=== PATIENT | female | born 2000 | race Caucasian/White ===

== ENCOUNTER 2020-08-12 23:29 | Emergency (ER) | payer OTHER ==
[~2020-08-12] VITALS: Ht 162.6 cm; Wt 50.8 kg
[~2020-08-12 23:29] MED LIST: AMOCLA875 PO; AZIT100SU PO; BENZ100A PO; CODACEE120 PO; CODGUAEL PO; Veetids 500500 MG PO
[2020-08-13] MEDS ORDERED: Amoxicillin500 MG PO (00:11)
== END 2020-08-13 00:18 | disposition home or self-care (01) ==
LOC: ER 23:29
DX: K04.7 Periapical abscess without sinus (principal)
CPT/HCPCS: 99282; A9270

== ENCOUNTER → 2021-02-01 | Outpatient (CLI) | payer OTHER ==
[~2021-02-01] MED LIST changes: +Amoxicillin500 MG PO
[2021-02-03 01:11] LABS: CHLAMYDIA TRACHOMATIS, NAA Negative (Negative)
== END ==
LOC: LAB 17:37 → LAB SHORT 17:37
PROVIDERS: Family Medicine
DX: O99.891 Other specified diseases and conditions complicating pregnancy (principal); R82.90 Unspecified abnormal findings in urine
CPT/HCPCS: 87086; 87491; 87591

== ENCOUNTER 2021-04-06 21:32 | Emergency (ER) | payer OTHER ==
[~2021-04-06] VITALS: Ht 157.5 cm; Wt 56.7 kg
[2021-04-06] MEDS ORDERED: AMOX500 PO (22:34)
== END 2021-04-06 22:44 | disposition home or self-care (01) ==
LOC: ER 21:32
DX: O99.830 Other infection carrier state complicating pregnancy (principal); K04.7 Periapical abscess without sinus; Z3A.17 17 weeks gestation of pregnancy; Z79.899 Other long term (current) drug therapy
CPT/HCPCS: 99282; A9270

== ENCOUNTER → 2021-08-16 | Outpatient (CLI) | payer OTHER ==
[~2021-08-16] MED LIST changes: +AMOX500 PO
== END | disposition home or self-care (01) ==
LOC: LAB SHORT 16:42 → LAB 16:42
DX: Z34.03 Encounter for supervision of normal first pregnancy, third trimester (principal); Z3A.36 36 weeks gestation of pregnancy
CPT/HCPCS: 87081; 87150

== ENCOUNTER 2021-09-03 14:10 | Inpatient (IN) | payer OTHER ==
[~2021-09-03] VITALS: Ht 165.1 cm; Wt 63.0 kg
[2021-09-03] MEDS ORDERED: PRENATAL TABLE1 EAC2 PO (14:45)
--- NOTE | 2021-09-03 15:53 | NUR ---
PT CONSENT TO CORE REFERRAL. CORE REFERRAL SENT
[2021-09-03 16:11] LABS: BASOPHILS ABSOLUTE AUTO 0.07 K/mm3 (0.00-0.23); BASOPHILS PERCENT AUTO 0 % (0-2); EOSINOPHILS PERCENT AUTO 0 % (0-6); Hemoglobin 14.5 g/dL (11.5-16.0); IMMATURE GRAN ABSOLUTE AUTO 0.21 K/mm3 (0.00-0.10); IMMATURE GRAN PERCENT AUTO 1 % (0-1); LYMPHOCYTES ABSOLUTE AUTO 1.27 K/mm3 (0.84-5.20); LYMPHOCYTES PERCENT AUTO 4 % (21-46); MONOCYTES ABSOLUTE AUTO 0.43 K/mm3 (0.16-1.47); MONOCYTES PERCENT AUTO 1 % (4-13); Mean Corpuscular HGB 29.8 pg (26.0-34.0); Mean Corpuscular HGB Conc 33.7 g/dL (31.5-36.5); Mean Corpuscular Volume 89 fL (80-100); Mean Platelet Volume 11.3 fL (9.1-12.4); NEUTROPHILS ABSOLUTE AUTO 28.32 K/mm3 (1.96-9.15); NEUTROPHILS PERCENT AUTO 94 % (41-73); Platelet Count 195 K/mm3 (150-400); RDW Coefficient Variation 17.6 % (11.7-14.2); RDW Standard Deviation 56.2 fL (35.1-46.3); Red Blood Cell Count 4.86 M/mm3 (3.80-5.20)
--- NOTE | 2021-09-03 16:19 | NUR ---
UP TO SHOWER. [facility] TEACHING DONE. PT WYATT BEING UP TO BRP AND SHOWER WELL. ABLE TO VOID
[2021-09-04 05:33] LABS: BASOPHILS ABSOLUTE AUTO 0.06 K/mm3 (0.00-0.23); BASOPHILS PERCENT AUTO 0 % (0-2); EOSINOPHILS ABSOLUTE AUTO 0.04 K/mm3 (0.00-0.68); EOSINOPHILS PERCENT AUTO 0 % (0-6); Hematocrit 39.4 % (33.0-51.0); Hemoglobin 13.2 g/dL (11.5-16.0); IMMATURE GRAN PERCENT AUTO 1 % (0-1); LYMPHOCYTES ABSOLUTE AUTO 3.89 K/mm3 (0.84-5.20); LYMPHOCYTES PERCENT AUTO 18 % (21-46); MONOCYTES ABSOLUTE AUTO 1.11 K/mm3 (0.16-1.47); MONOCYTES PERCENT AUTO 5 % (4-13); Mean Corpuscular HGB 29.6 pg (26.0-34.0); Mean Corpuscular HGB Conc 33.5 g/dL (31.5-36.5); Mean Corpuscular Volume 88 fL (80-100); Mean Platelet Volume 11.1 fL (9.1-12.4); NEUTROPHILS PERCENT AUTO 76 % (41-73); Platelet Count 184 K/mm3 (150-400); RDW Coefficient Variation 17.6 % (11.7-14.2); RDW Standard Deviation 56.4 fL (35.1-46.3); Red Blood Cell Count 4.46 M/mm3 (3.80-5.20)
--- NOTE | 2021-09-04 08:59 | NUR ---
MOTHER IS VERY AGITATED THIS MORNING. [facility] [employer] REPORTED TO NURSE THAT PT WANTED TO LEAVE AND NOT STAY FOR 24 HOUR TESTS OR CARSEAT CHALLENGE. RN IN ROOM WITH PT AND S.O. ROGER, AND PT'S MOTHER. PT WAS STRAIGHT FACED. RN EDUCATED ON IMPORTANCE AND REASONING OF 24 HOUR TESTS AND CARSEAT CHALLENGE. PT'S MOTHER BROUGHT IN CARSEAT, SO RN OFFERED TO TAKE NB FOR CHALLENGE SO PT COULD GO GET HOT BREAKFAST, TAKE A SHOWER, NAP, GET FRESH AIR TO CALM DOWN. AFTER VS AND ASSESSMENT PT APPEARED TO BE CALM AND EVEN SMILED. PT AND HER MOTHER THEN STARTED TO ARGUE. PT'S MOTHER WALKED OUT AND RN WAS BEHIND HER WITH NB FOR CARSEAT CHALLENGE. PT AND S.O. FOLLOWED BEHIND, WALKING OUT OF UNIT. WILL CONTINUE TO MONITOR. PT REFUSED MOTRIN AND STATED SHE JUST, "WANTS TO DO THE TESTS AND GO HOME, I CAN'T SLEEP HERE"
--- NOTE | 2021-09-04 11:10 | NUR ---
[place] DEPRESSION SCREEN OF 4. PT STATES SHE HAS HISTORY WITH ANXIETY AND WAS TAKING BUSPAR PRIOR TO . PT DOES NOT HAVE CURRENT PRESCRIPTION. RECOMMENDED PT TALK TO DR ABOUT REFILLING PRESCRIPTION.
--- NOTE | 2021-09-04 13:54 | NUR ---
DISCHARGE INSTRUCTIONS, WRITTEN AND VERBAL, GIVEN TO PT. ANSWERED ALL QUESTIONS AND CONCERNS. FOLLOW UP APPOINTMENT SCHEDULED. ALL PERSONAL BELONGINGS RETURNED. PT IS READY FOR DISCHARGE.
== END 2021-09-04 14:54 | disposition home or self-care (01) | DRG 806 ==
LOC: OBS 14:10 → BC 14:11 → OBS 14:18 → BC 14:18
PROVIDERS: ADMIT Family Medicine
PROC: 10E0XZZ Delivery of Products of Conception, External Approach (ICD-10-PCS; principal; 2021-09-03)
PROC: 0HQ9XZZ Repair Perineum Skin, External Approach (ICD-10-PCS; 2021-09-03)
DX: O62.3 Precipitate labor (principal); O99.324 Drug use complicating childbirth; Z37.0 Single live birth; O70.0 First degree perineal laceration during delivery; Z79.899 Other long term (current) drug therapy; Z3A.38 38 weeks gestation of pregnancy; O99.334 Smoking (tobacco) complicating childbirth; F17.210 Nicotine dependence, cigarettes, uncomplicated; F12.90 Cannabis use, unspecified, uncomplicated
CPT/HCPCS: 36415; 85025; 86850; 86900; 86901; 99214; A9270

== ENCOUNTER → 2021-11-22 | Outpatient (CLI) | payer OTHER ==
[~2021-11-22] MED LIST changes: +PRENATAL TABLE1 EAC2 PO
== END | disposition home or self-care (01) ==
LOC: LAB 17:57 → LAB SHORT 17:57
PROVIDERS: Family Medicine
DX: Z00.00 Encounter for general adult medical examination without abnormal findings (principal); Z12.4 Encounter for screening for malignant neoplasm of cervix
CPT/HCPCS: G0123

== ENCOUNTER → 2022-09-01 | Outpatient (CLI) | payer OTHER ==
[2022-09-03 01:09] LABS: CHLAMYDIA TRACHOMATIS, NAA Negative (Negative)
== END ==
LOC: LAB 12:03 → LAB SHORT 12:03
PROVIDERS: Family Medicine
DX: Z34.01 Encounter for supervision of normal first pregnancy, first trimester (principal); Z34.81 Encounter for supervision of other normal pregnancy, first trimester; Z3A.01 Less than 8 weeks gestation of pregnancy
CPT/HCPCS: 87086; 87491; 87591

== ENCOUNTER → 2023-03-17 | Outpatient (CLI) | payer OTHER ==
[2023-03-17 12:01] LABS: BASOPHILS ABSOLUTE AUTO 0.09 K/mm3 (0.00-0.23); BASOPHILS PERCENT AUTO 0 % (0-2); EOSINOPHILS ABSOLUTE AUTO 0.17 K/mm3 (0.00-0.68); EOSINOPHILS PERCENT AUTO 1 % (0-6); Hematocrit 38.5 % (33.0-51.0); Hemoglobin 12.9 g/dL (11.5-16.0); IMMATURE GRAN ABSOLUTE AUTO 0.13 K/mm3 (0.00-0.10); IMMATURE GRAN PERCENT AUTO 1 % (0-1); LYMPHOCYTES ABSOLUTE AUTO 3.69 K/mm3 (0.84-5.20); LYMPHOCYTES PERCENT AUTO 18 % (21-46); MONOCYTES PERCENT AUTO 5 % (4-13); Mean Corpuscular HGB 31.2 pg (26.0-34.0); Mean Corpuscular HGB Conc 33.5 g/dL (31.5-36.5); Mean Corpuscular Volume 93 fL (80-100); Mean Platelet Volume 11.9 fL (9.1-12.4); NEUTROPHILS ABSOLUTE AUTO 15.83 K/mm3 (1.96-9.15); NEUTROPHILS PERCENT AUTO 75 % (41-73); Platelet Count 216 K/mm3 (150-400); RDW Coefficient Variation 13.9 % (11.7-14.2); RDW Standard Deviation 47.1 fL (35.1-46.3); Red Blood Cell Count 4.14 M/mm3 (3.80-5.20); White Blood Cell Count 21.01 K/mm3 (4.00-11.30)
== END | disposition home or self-care (01) ==
LOC: LAB SHORT 10:56
PROVIDERS: Family Medicine
DX: Z34.83 Encounter for supervision of other normal pregnancy, third trimester (principal); Z3A.26 26 weeks gestation of pregnancy
CPT/HCPCS: 82950; 85025

== ENCOUNTER → 2023-03-29 | Outpatient (CLI) | payer OTHER | END | disposition home or self-care (01) | LOC: LAB 17:17 → LAB SHORT 17:17 | DX: Z34.83 Encounter for supervision of other normal pregnancy, third trimester (principal); Z3A.37 37 weeks gestation of pregnancy | CPT/HCPCS: 87081; 87150 ==

== ENCOUNTER 2023-04-14 17:25 | Inpatient (IN) | payer OTHER ==
[~2023-04-14] VITALS: Ht 162.6 cm; Wt 57.3 kg
[2023-04-14] VITALS (9 sets, daily range): BP systolic 101–125; BP diastolic 64–78
[2023-04-14] MEDS ORDERED: LR Oxytocin 20 Units 1,000 ML IV ONE (17:40)
[2023-04-14] MEDS ORDERED: Oxytocin 10 Unit / ML Vial IM SCH (17:45)
[2023-04-14] MEDS ORDERED: Castor Oil 59.146 ML BTL TOP SCH (17:45)
[2023-04-14] MEDS ORDERED: Methylergonovine Maleate 0.2MG / ML 1ML Amp IM SCH (17:45)
[2023-04-14] MEDS ORDERED: Lactated Ringer's 1,000 ML IV PRN (17:45)
[2023-04-14] MEDS ORDERED: Bupivacaine HCl 2.5 MG/ML 10ML P/F Injection XX SCH (17:45)
[2023-04-14] MEDS ORDERED: LR Oxytocin 20 Units 1,000 ML IV SCH (17:45)
[2023-04-14] MEDS ORDERED: Bupivacaine 0.5% HCl 5 MG/ML 30MLVIAL XX SCH (17:45)
[2023-04-14] MEDS ORDERED: Misoprostol 200 MCG Tab PR SCH (17:45)
[2023-04-14] MEDS ORDERED: Lidocaine HCl 1% 30 ML SDV XX SCH (17:45)
[2023-04-14 17:51] LABS: BASOPHILS ABSOLUTE AUTO 0.06 K/mm3 (0.00-0.23); BASOPHILS PERCENT AUTO 0 % (0-2); EOSINOPHILS ABSOLUTE AUTO 0.05 K/mm3 (0.00-0.68); EOSINOPHILS PERCENT AUTO 0 % (0-6); Hematocrit 42.5 % (33.0-51.0); Hemoglobin 14.7 g/dL (11.5-16.0); IMMATURE GRAN PERCENT AUTO 1 % (0-1); LYMPHOCYTES ABSOLUTE AUTO 3.57 K/mm3 (0.84-5.20); LYMPHOCYTES PERCENT AUTO 17 % (21-46); MONOCYTES ABSOLUTE AUTO 1.06 K/mm3 (0.16-1.47); MONOCYTES PERCENT AUTO 5 % (4-13); Mean Corpuscular HGB 31.3 pg (26.0-34.0); Mean Corpuscular HGB Conc 34.6 g/dL (31.5-36.5); Mean Corpuscular Volume 91 fL (80-100); Mean Platelet Volume 10.9 fL (9.1-12.4); NEUTROPHILS ABSOLUTE AUTO 16.26 K/mm3 (1.96-9.15); NEUTROPHILS PERCENT AUTO 77 % (41-73); Platelet Count 188 K/mm3 (150-400); RDW Coefficient Variation 14.3 % (11.7-14.2); RDW Standard Deviation 47.1 fL (35.1-46.3); Red Blood Cell Count 4.69 M/mm3 (3.80-5.20)
[2023-04-14] MEDS ORDERED: Lactated Ringer's 1,000 ML IV SCH (18:30)
[2023-04-14] MEDS ORDERED: Methylergonovine Maleate 0.2MG / ML 1ML Amp IM PRN (18:30)
[2023-04-14] MEDS ORDERED: Misoprostol 200 MCG Tab PO PRN (18:30)
[2023-04-14] MEDS ORDERED: Acetaminophen 325 MG TABLET PO PRN (18:35)
[2023-04-14] MEDS ORDERED: Carboprost Tromethamine 250 MCG/ML 1ML Amp IM PRN (18:35)
[2023-04-14] MEDS ORDERED: Docusate Sodium 100 MG Cap PO PRN (18:35)
[2023-04-14] MEDS ORDERED: Misoprostol 200 MCG Tab PR PRN (18:35)
[2023-04-14] MEDS ORDERED: Benzocaine Topical Anesthetic Spray 60GM TOP PRN (18:35)
[2023-04-14] MEDS ORDERED: FLU VACC QS2023-24(6MOS UP)/PF 60 MCG/0.5 ML SYRINGE IM ONE (18:35)
[2023-04-14] MEDS ORDERED: Ibuprofen 400 MG Tab PO PRN (18:40)
[2023-04-14] MEDS ORDERED: Witch Hazel/Glycerin PADS TOP PRN (18:40)
[2023-04-14] MEDS ORDERED: Ketorolac Tromethamine 30mg Vial IV SCH (19:00)
[2023-04-15 00:57] VITALS: BP 116/67
[2023-04-15 04:47] VITALS: BP 125/76
[2023-04-15 05:25] LABS: BASOPHILS ABSOLUTE AUTO 0.07 K/mm3 (0.00-0.23); BASOPHILS PERCENT AUTO 0 % (0-2); EOSINOPHILS ABSOLUTE AUTO 0.03 K/mm3 (0.00-0.68); EOSINOPHILS PERCENT AUTO 0 % (0-6); Hemoglobin 13.6 g/dL (11.5-16.0); IMMATURE GRAN ABSOLUTE AUTO 0.11 K/mm3 (0.00-0.10); IMMATURE GRAN PERCENT AUTO 1 % (0-1); LYMPHOCYTES ABSOLUTE AUTO 3.93 K/mm3 (0.84-5.20); LYMPHOCYTES PERCENT AUTO 20 % (21-46); MONOCYTES ABSOLUTE AUTO 1.23 K/mm3 (0.16-1.47); MONOCYTES PERCENT AUTO 6 % (4-13); Mean Corpuscular HGB 31.2 pg (26.0-34.0); Mean Corpuscular Volume 92 fL (80-100); Mean Platelet Volume 10.8 fL (9.1-12.4); NEUTROPHILS ABSOLUTE AUTO 14.77 K/mm3 (1.96-9.15); NEUTROPHILS PERCENT AUTO 74 % (41-73); Platelet Count 164 K/mm3 (150-400); RDW Coefficient Variation 14.2 % (11.7-14.2); RDW Standard Deviation 47.6 fL (35.1-46.3); Red Blood Cell Count 4.36 M/mm3 (3.80-5.20); White Blood Cell Count 20.14 K/mm3 (4.00-11.30)
[2023-04-15 08:09] VITALS: BP 110/74
[2023-04-15] MEDS ORDERED: Prenatal Vit/FE Fumarate/FA 1 Tab PO SCH (09:00)
[2023-04-15] MEDS ORDERED: IBUP800 PO (10:23)
--- NOTE | 2023-04-15 10:59 | NUR ---
04/15/23 1045 pt scored 11 on EPDS, Zaheer from [facility] was called and to come see here JULIO CESAR. Pt states that she does not take her depression meds for the past 7 days adn will begin again after she gets home. States that Dr Choudhary is aware of this and that they have a follow up plan at discharge.
== END 2023-04-15 12:43 | disposition home or self-care (01) | DRG 807 ==
LOC: OBS 17:25 → BC 17:26 → OBS 17:38 → BC 17:39
PROVIDERS: Registered Nurse Community Health; ADMIT Family Medicine
PROC: 10E0XZZ Delivery of Products of Conception, External Approach (ICD-10-PCS; principal; 2023-04-14)
DX: O99.334 Smoking (tobacco) complicating childbirth (principal); Z37.0 Single live birth; Z3A.38 38 weeks gestation of pregnancy; F17.210 Nicotine dependence, cigarettes, uncomplicated
CPT/HCPCS: 36415; 85025; 86850; 86900; 86901; A9270; J1885

== ENCOUNTER 2024-04-13 11:04 | Emergency (ER) | payer OTHER ==
[~2024-04-13] VITALS: Ht 162.6 cm; Wt 54.4 kg
[~2024-04-13 11:04] MED LIST changes: +IBUP800 PO
[2024-04-13 11:18] VITALS: BP 108/62
== END 2024-04-13 13:25 | disposition home or self-care (01) ==
LOC: ER 11:04
DX: S71.111A Laceration without foreign body, right thigh, initial encounter (principal); F10.129 Alcohol abuse with intoxication, unspecified; W26.0XXA Contact with knife, initial encounter; Z79.899 Other long term (current) drug therapy
CPT/HCPCS: 12004; 99283-25